=== PATIENT | female | born 1980 | race Caucasian/White ===

== ENCOUNTER 2016-06-01 19:37 | Emergency (ER) | payer SELFPAY ==
--- NOTE | 2016-06-05 10:17 | ER ---
ADMIT: 06/01/2016 RM/LOC: ER [facility] MR#: [id number] [address] [address] NELIA PALOMARES [address] [place] [address] Emergency Room Report SEX: F AGE: 35 : 1980 DATE: 06/01/2016 ADDENDUM: CHIEF COMPLAINT: Headache. HISTORY OF PRESENT ILLNESS: This is a 35-year-old who comes in complaining of her headache. She rates it 10/10. It is pounding from the frontal lobe back to the occipital into her neck. COURSE IN THE EMERGENCY ROOM: CT of her head was done, it is negative for any acute findings over-read by Dr. Murphy. Toradol 50 mg IM, Benadryl 25 mg, and Reglan 5 mg IM was given here in the emergency room. She does feel a little bit better. I am having her do fluids, rest, and follow up as needed. CLINICAL IMPRESSION: Migraine headache. GRANT Collins / Chuck Murphy MD / hunter JOB #: [id number] CC: Chuck Murphy MD, Attending Physician Venita Moreno MD, Family Physician
== END 2016-06-01 21:12 | disposition home or self-care (01) ==
LOC: ER 19:37
DX: G43.909 Migraine, unspecified, not intractable, without status migrainosus (principal); F17.210 Nicotine dependence, cigarettes, uncomplicated; Z85.41 Personal history of malignant neoplasm of cervix uteri; Z79.899 Other long term (current) drug therapy